=== PATIENT | male | born 1975 | race Caucasian/White ===

== ENCOUNTER 2021-02-11 18:59 | Emergency (ER) | payer MEDICAID, OTHER ==
[~2021-02-11] VITALS: Ht 175.3 cm; Wt 84.1 kg
[2021-02-11 19:00] VITALS: BP 116/77
[2021-02-11] MEDS ORDERED: TETanus/Pertussis (Acell)/Diphther VAC/PF (Tdap-Adult) 0.5ml syringe IMVAC ONE (19:10)
== END 2021-02-11 19:21 | disposition home or self-care (01) ==
LOC: ER 19:00
DX: J06.9 Acute upper respiratory infection, unspecified (principal)
CPT/HCPCS: 90471; 90715; 99284